=== PATIENT | female | born 1960 | race Caucasian/White ===

== ENCOUNTER 2023-11-15 00:43 | Observation (INO) ==
[2023-11-15] MEDS: Ondansetron 4 mg VIAL 2 MG/ML 2 ml VIAL IV ONE (01:10)
[2023-11-15] MEDS: Morphine 4 MG/ML VIAL (1 ml) IV ONE (01:12)
[2023-11-15] MEDS: Lactated Ringers 1000 ml BAG 1,000 ML IV ONE (01:15)
[2023-11-15 01:32] LABS: ABS Basophils 0.1 10^3/uL (0.0-0.1); ABS Eosinophils 0.1 10^3/uL (0.0-0.5); ABS Monocytes 0.7 10^3/uL (0.0-0.9); ABS Neutrophils 14.5 10^3/uL (1.5-7.6); ABS Nucleated RBC 0.01 10^3/ul; Eosinophil % 0.4 %; Hematocrit 38.8 % (35-45); Hemoglobin 13.5 g/dL (11.5-14.3); Lymphocyte % 11.7 %; Mean Corpuscular Hemoglobin 32.6 pg (27-33); Mean Corpuscular Hgb Conc 34.7 g/dL (31-36); Mean Platelet Volume 7.6 fL (7.5-11.2); Nucleated Red Blood Cells % 0.1 %/100WBC (0.0-0.8); Platelet Count 244 10^3/uL (150-450); Red Blood Count 4.13 10^6/uL (3.63-4.92); Red Cell Distribution Width 12.9 % (12-17); White Blood Count 17.5 10^3/uL (3.8-11.8)
[2023-11-15 01:37] LABS: INR 1.06 (0.83-1.13)
[2023-11-15] MEDS ORDERED: Ondansetron 4 mg VIAL 2 MG/ML 2 ml VIAL IV PRN (01:41)
[2023-11-15 02:13] LABS: Albumin/Globulin Ratio 1.7 (1-3); C Reactive Protein 35.77 mg/L (<8.01); Calcium 9.2 mg/dL (8.6-10.3); Creatinine, Serum 0.96 mg/dL (0.51-0.95); Globulin 2.4 g/dL (2-4); Potassium 4.2 mmol/L (3.5-5.0); Total Bilirubin 0.6 mg/dL (0.2-1.0); Total Protein 6.4 g/dL (6.4-8.9); eGFR CKD-EPI 67.3 (>60)
[2023-11-15] MEDS: NS 0.9% 1000 ml BAG 1,000 ML IV SCH (02:34)
[2023-11-15] MEDS ORDERED: Albuterol HFA INHALER 8 gm MDI INH PRN (02:49)
[2023-11-15] MEDS: Tiotropium Brom/Olodaterol MDI (ACUTE) INH SCH (03:06)
[2023-11-15] MEDS ORDERED: Nicotine PATCH 21 MG/24 HR PATCH TRANSDERM PRN (03:11)
[2023-11-15] MEDS: HYDROmorphone 1 MG/1 ML SYRINGE IV SLOW PU PRN (03:54)
[2023-11-15] MEDS: Piperacillin/Tazobac 3.375 BAG 3.375 GM/100 ML BAG IV SCH (05:20)
[2023-11-15] MEDS ORDERED: Bupivacaine 0.25% SDV 30 ML ONE (10:04)
[2023-11-15] MEDS ORDERED: Midazolam 2 mg/2 ml VIAL 1 mg/ml 2 ml VIAL (2 mg) ONE (11:16)
[2023-11-15] MEDS ORDERED: fentaNYL 100 mcg/2 ml 50 MCG/ML VIAL ONE ×3 (11:16→15:55)
[2023-11-15] MEDS ORDERED: Rocuronium 50 mg VIAL 10 mg/ml 5 ml VIAL (50 mg) ONE ×2 (11:16→13:42)
[2023-11-15] MEDS ORDERED: Lidocaine 2% PF 5 ML VIAL ONE (11:17)
[2023-11-15] MEDS ORDERED: Ondansetron 4 mg VIAL 2 MG/ML 2 ml VIAL ONE ×2 (11:17→13:25)
[2023-11-15] MEDS ORDERED: Dexamethasone IV 4 MG/ML VIAL 1 ml VIAL ONE (11:17)
[2023-11-15] MEDS ORDERED: Propofol 10 MG/ML 20 ML BTL ONE (11:17)
[2023-11-15] MEDS ORDERED: Acetaminophen IV 1 GM/100ML 1,000 MG/100 ML BAG IV ONE (11:18)
[2023-11-15] MEDS ORDERED: Sulfur Hexaflouride MICROSPHR 25 MG VIAL ONE (12:05)
[2023-11-15] MEDS ORDERED: Naloxone 0.4 mg VIAL 0.4 mg/ml 1 ml VIAL IV PRN (12:27)
[2023-11-15] MEDS ORDERED: Levalbuterol HFA INHALER MDI ONE (13:22)
[2023-11-15] MEDS: fentaNYL 100 mcg/2 ml 50 MCG/ML VIAL IV PRN (15:58)
[2023-11-15] MEDS ORDERED: HYDROmorphone 0.5 MG/0.5 ML SYRINGE IV PRN (17:45)
[2023-11-16] MEDS: Furosemide 40 mg/4 ml IV VIAL IV SLOW PU ONE (12:01)
[2023-11-16 13:37] VITALS: BP 121/56
== END 2023-11-16 16:10 | disposition home or self-care (01) ==
LOC: EDHOLD 00:43 → ED 00:43 → SUATTDRO 01:41 → AA 10:20 → MED 17:37
PROVIDERS: ADMIT Student in an Organized Health Care Education/Training Program; ATTEND Surgery Surgical Critical Care